=== PATIENT | female | born 1995 | race Caucasian/White ===

== ENCOUNTER 2018-03-12 12:25 | Emergency (ER) | payer OTHER ==
[~2018-03-12] VITALS: Ht 167.6 cm; Wt 96.8 kg
[2018-03-12 12:31] VITALS: Ht 167.6 cm; Wt 96.8 kg
[2018-03-12 13:01] LABS: microscopic required? NO
[2018-03-12 13:14] LABS: UA SPECIFIC GRAVITY 1.015 (1.005-1.035); urine erythrocyte NEGATIVE (NEGATIVE)
[2018-03-12 15:50] VITALS: BP 138/88
== END 2018-03-12 15:50 | disposition home or self-care (01) ==
LOC: ED 12:25
PROVIDERS: Emergency Medicine
DX: N76.0 Acute vaginitis (principal); N73.9 Female pelvic inflammatory disease, unspecified
CPT/HCPCS: 87491; 87591; J0696; J1885; Q0162

== ENCOUNTER 2018-05-20 12:53 | Emergency (ER) | payer OTHER ==
[~2018-05-20] VITALS: Ht 167.6 cm; Wt 97.1 kg
[2018-05-20 12:58] VITALS: Ht 167.6 cm; Wt 97.1 kg
[2018-05-20 13:19] LABS: BASOPHIL % 0.3 % (0-2); PLATELET COUNT 313 x10^3mcL (130-400); RED CELL DISTRIBUTION WIDTH 12.9 % (11.5-14.5)
[2018-05-20 13:27] LABS: CARBON DIOXIDE 31.8 mmol/L (21-32); CHLORIDE SERUM 99 mmol/L (98-107); GFR1 > 60 mL/min; GLUCOSE SERUM 396 mg/dL (74-106); POTASSIUM SERUM 4.2 mmol/L (3.5-5.1); SODIUM SERUM 135 mmol/L (136-145)
[2018-05-20 13:31] LABS: ALBUMIN 3.4 g/dL (3.4-5.0); ALKALINE PHOSPHATASE 88 U/L (46-116); ALT/SGPT 40 U/L (14-59); AST/SGOT 24 U/L (15-37); BILIRUBIN TOTAL 0.41 mg/dL (0.20-1.00); LIPASE 145 IU/L (73-393); TOTAL PROTEIN, SERUM 8.1 g/dL (6.4-8.2)
[2018-05-20 15:34] VITALS: BP 132/89
== END 2018-05-20 15:34 | disposition home or self-care (01) ==
LOC: ED 12:53
PROVIDERS: Emergency Medicine
PROC: 3E033NZ Introduction of Analgesics, Hypnotics, Sedatives into Peripheral Vein, Percutaneous Approach (ICD-10-PCS; principal; 2018-05-20)
PROC: 3E033VG Introduction of Insulin into Peripheral Vein, Percutaneous Approach (ICD-10-PCS; 2018-05-20)
PROC: 3E033GC Introduction of Other Therapeutic Substance into Peripheral Vein, Percutaneous Approach (ICD-10-PCS; 2018-05-20)
PROC: BF42ZZZ Ultrasonography of Gallbladder (ICD-10-PCS; 2018-05-20)
DX: R10.11 Right upper quadrant pain (principal); E11.65 Type 2 diabetes mellitus with hyperglycemia
CPT/HCPCS: 82962; J1815; J1885; J2405; J7030

== ENCOUNTER 2018-11-18 15:26 | Emergency (ER) | payer OTHER ==
[~2018-11-18] VITALS: Ht 167.6 cm; Wt 100.7 kg
[2018-11-18 15:38] VITALS: Ht 167.6 cm; Wt 100.7 kg
[2018-11-18 16:27] LABS: BASOPHIL % 0.7 % (0-2); PLATELET COUNT 323 x10^3mcL (130-400); RED CELL DISTRIBUTION WIDTH 12.9 % (11.5-14.5)
[2018-11-18 16:56] LABS: CARBON DIOXIDE 30.5 mmol/L (21-32); CHLORIDE SERUM 102 mmol/L (98-107); CREATININE SERUM 0.8 mg/dL (0.6-1.0); GFR1 > 60 mL/min; GLUCOSE SERUM 213 mg/dL (74-106); POTASSIUM SERUM 4.2 mmol/L (3.5-5.1); SODIUM SERUM 141 mmol/L (136-145)
[2018-11-18 17:00] LABS: ALKALINE PHOSPHATASE 87 U/L (46-116); ALT/SGPT 53 U/L (14-59); AST/SGOT 20 U/L (15-37); BILIRUBIN TOTAL 0.3 mg/dL (0.20-1.00); TOTAL PROTEIN, SERUM 7.9 g/dL (6.4-8.2)
[2018-11-18 17:03] LABS: ALBUMIN 3.3 g/dL (3.4-5.0)
[2018-11-18 17:54] LABS: microscopic required? NO
[2018-11-18 18:20] LABS: urine erythrocyte NEGATIVE (NEGATIVE)
[2018-11-18 19:17] VITALS: BP 139/86
== END 2018-11-18 19:27 | disposition home or self-care (01) ==
LOC: ED 15:26
PROVIDERS: Emergency Medicine
DX: R10.30 Lower abdominal pain, unspecified (principal); R11.10 Vomiting, unspecified; R17 Unspecified jaundice; E11.9 Type 2 diabetes mellitus without complications; Z98.890 Other specified postprocedural states; Z90.89 Acquired absence of other organs
CPT/HCPCS: J1885; J2405; J7030